=== PATIENT | female | born 1990 | race Caucasian/White ===

== ENCOUNTER 2016-07-29 19:06 | Emergency (ER) | payer BC ==
[~2016-07-29] VITALS: Ht 172.7 cm; Wt 129.3 kg
[~2016-07-29 19:06] MED LIST: AMOXICILLIN500 MG PO; AMOXIL500 MG PO; ATARAX10 MG PO; ATARAX25 MG PO; AUGMENTIN 875 M1 TA1 PO; BACTRIM DS 8001 TA1 PO; BACTROBAN2% TP; BENADRYL25 MG PO; BENADRYL50 MG PO; BIRTH CONTROL1 EAC1; CIPRO500 MG PO; CIPROFLOXACIN500 MG PO; CLARITIN10 MG PO; CLINDAMYCIN150 MG PO; COLACE50 MG PO; FERROUS SULFATE; FLEXERIL10 MG PO; FLEXERIL5 MG PO; HYDROCODONE BIT1 T11 PO; IBU-8800 MG PO; IBU800 M1 PO; KEFLEX500 MG PO; KENALOG 0.1%80 GM T; KETOROLAC10 MG PO; LIDEX 0.05% CRE15 GM T; MACROBID100 M1 PO; MEDROL DOSEPAK4 MG PO; MOTRIN800 MG PO; PEPCID20 MG PO; PRED-PAK 455 MG PO; PREDNICOT20 MG PO; PREDNISONE20 MG PO; PRENATAL1 TA1 PO; ROBITUSSIN AC 110 ML PO; ROBITUSSIN DM120 ML PO; SKELAXIN800 M1 PO; ULTRAM50 MG PO; VITAMIN D1000 IU PO; ZANTAC 150150 MG PO; ZITHROMAX Z PA250 MG PO; ZOFRAN ODT4 MG SL; ZYRTEC10 MG PO
[2016-07-29 19:58] LABS: BILIRUBIN NEGATIVE (NEGATIVE); BLOOD 2+ (NEGATIVE); COLOR YELLOW (YELLOW); GLUCOSE NEGATIVE (NEGATIVE); KETONE NEGATIVE (NEGATIVE); LEUKO ESTERASE 2+ (NEGATIVE); NITRITE NEGATIVE (NEGATIVE); PH 5.5 (5.0-9.0); PROTEIN NEGATIVE (NEGATIVE); UROBILINOGEN 0.2 E.U./dl (0.2-1.0)
[2016-07-29 20:09] LABS: CLARITY SL CLOUDY (CLEAR)
[2016-07-29 20:10] LABS: EPITHELIAL CELLS 25-30; URINE REFLEX COMMENT YES (NO)
[2016-07-29] MEDS ORDERED: MACROBID100 M1 PO (20:14)
[2016-09-19] MEDS ORDERED: AVPAK AZITHROM250 M1 PO (11:50)
[2016-09-19] MEDS ORDERED: ZOFRAN ODT4 MG SL (11:52)
[2016-09-19] MEDS ORDERED: PRILOSEC20 M1 PO (11:52)
== END 2016-07-29 20:19 | disposition home or self-care (01) ==
LOC: ED 19:06
PROVIDERS: Nurse Practitioner Family
DX: N30.01 Acute cystitis with hematuria (principal); F17.200 Nicotine dependence, unspecified, uncomplicated; Z91.030 Bee allergy status; Z88.0 Allergy status to penicillin; Z88.8 Allergy status to other drugs, medicaments and biological substances

== ENCOUNTER 2016-07-31 14:07 | Emergency (ER) | payer BC ==
[~2016-07-31] VITALS: Ht 172.7 cm; Wt 129.3 kg
[2016-07-31 14:47] LABS: BASO % 0.5 % (0.0-1.0); EOS # 0.3 10*3/uL (0.0-0.4); EOS % 3.4 % (1.0-4.0); HEMATOCRIT 38.8 % (37.0-47.0); HEMOGLOBIN 12.6 g/dl (12.0-16.0); LYMPH # 2.2 10*3/uL (1.3-4.4); LYMPH % 26.1 % (27.0-41.0); MEAN CELL VOLUME 87.8 fl (81.0-99.0); MEAN CORPUSCULAR HGB 28.5 pg (27.0-31.0); MEAN CORPUSCULAR HGB CONC 32.5 g/dl (33.0-37.0); MEAN PLATELET VOLUME 11.1 fl (9.6-12.3); MONO # 0.4 10*3/uL (0.1-1.0); NEUT # 5.6 10*3/uL (2.3-7.9); NEUT % 64.8 % (47.0-73.0); PLATELET COUNT AUTOMATED 207 10*3/uL (130-400); RED BLOOD COUNT 4.42 10*6/uL (4.10-5.10); WHITE BLOOD COUNT 8.6 10*3/uL (4.8-10.8)
[2016-07-31 14:58] LABS: BILIRUBIN NEGATIVE (NEGATIVE); BLOOD 3+ (NEGATIVE); CLARITY CLOUDY (CLEAR); COLOR YELLOW (YELLOW); GLUCOSE NEGATIVE (NEGATIVE); KETONE NEGATIVE (NEGATIVE); LEUKO ESTERASE 3+ (NEGATIVE); NITRITE NEGATIVE (NEGATIVE); PROTEIN 1+ (NEGATIVE); SPECIFIC GRAVITY 1.015 (1.005-1.030); UROBILINOGEN 0.2 E.U./dl (0.2-1.0)
[2016-07-31 15:06] LABS: BACTERIA 1+; RBC 16-20 rbc/hpf (0-2); WBC 41-50 wbc/hpf (0-5)
[2016-07-31 15:07] LABS: URINE REFLEX COMMENT YES (NO)
[2016-07-31 15:14] LABS: BUN 11 mg/dl (7-24); CARBON DIOXIDE 30 mmol/L (21-32); CHLORIDE 106 mmol/L (98-107); EST GLOM FILT AFRICAN AMERICAN > 60 ml/min; GLUCOSE 106 mg/dL (65-99); POTASSIUM 4.1 mmol/L (3.5-5.1); SODIUM 143 mmol/L (136-145)
[2016-07-31] MEDS ORDERED: Motrin,Rufen800 MG PO (16:40)
[2016-07-31] MEDS ORDERED: LEVOFLOXACIN500 MG PO (16:40)
[2016-07-31] MEDS ORDERED: PYRIDIUM200 M1 PO (16:40)
[2016-09-19] MEDS ORDERED: AVPAK AZITHROM250 M1 PO (11:50)
[2016-09-19] MEDS ORDERED: PRILOSEC20 M1 PO (11:52)
[2016-09-19] MEDS ORDERED: ZOFRAN ODT4 MG SL (11:52)
== END 2016-07-31 16:46 | disposition home or self-care (01) ==
LOC: ED 14:07
PROVIDERS: Emergency Medicine
DX: N92.0 Excessive and frequent menstruation with regular cycle (principal); N39.0 Urinary tract infection, site not specified; F17.200 Nicotine dependence, unspecified, uncomplicated; Z88.0 Allergy status to penicillin; Z91.030 Bee allergy status; Z88.8 Allergy status to other drugs, medicaments and biological substances

== ENCOUNTER 2016-10-12 14:03 | Emergency (ER) | payer BC ==
[~2016-10-12] VITALS: Ht 172.7 cm; Wt 132.4 kg
[~2016-10-12 14:03] MED LIST changes: +AVPAK AZITHROM250 M1 PO; +LEVOFLOXACIN500 MG PO; +Motrin,Rufen800 MG PO; +PRILOSEC20 M1 PO; +PYRIDIUM200 M1 PO
[2016-10-12] MEDS ORDERED: FLONASE ALLERG9.9 ML NAS (14:27)
[2016-10-12] MEDS ORDERED: CLARITIN-D 12 H1 TAB PO (14:27)
[2016-10-12] MEDS ORDERED: ZITHROMAX250 MG PO (14:27)
== END 2016-10-12 14:31 | disposition home or self-care (01) ==
LOC: ED 14:03
DX: J01.90 Acute sinusitis, unspecified (principal); J45.909 Unspecified asthma, uncomplicated; F17.200 Nicotine dependence, unspecified, uncomplicated; Z79.899 Other long term (current) drug therapy; Z91.030 Bee allergy status; Z88.0 Allergy status to penicillin

== ENCOUNTER 2017-05-07 17:36 | Emergency (ER) | payer BC, MEDICAID ==
[~2017-05-07] VITALS: Ht 167.6 cm; Wt 122.5 kg
[~2017-05-07 17:36] MED LIST changes: +CLARITIN-D 12 H1 TAB PO; +FLONASE ALLERG9.9 ML NAS; +ZITHROMAX250 MG PO
== END 2017-05-07 18:13 | disposition home or self-care (01) ==
LOC: ED 17:36
DX: S06.0X0A Concussion without loss of consciousness, initial encounter (principal); F17.200 Nicotine dependence, unspecified, uncomplicated; Z88.0 Allergy status to penicillin; Z91.030 Bee allergy status; Z91.041 Radiographic dye allergy status; W22.8XXA Striking against or struck by other objects, initial encounter; Y93.89 Activity, other specified; Y92.89 Other specified places as the place of occurrence of the external cause; Y99.8 Other external cause status

== ENCOUNTER → 2017-07-24 | Outpatient (CLI) | payer BC, MEDICAID | END | disposition home or self-care (01) | LOC: RAD 17:09 | DX: M54.5 Low back pain (principal); Z91.81 History of falling ==

== ENCOUNTER 2017-10-22 10:11 | Emergency (ER) | payer BC, OTHER ==
[~2017-10-22] VITALS: Ht 170.1 cm; Wt 134.3 kg
[2017-10-22 10:34] LABS: BASO % 0.3 % (0.0-1.0); EOS # 0.2 10*3/uL (0.0-0.4); HEMATOCRIT 40.8 % (37.0-47.0); HEMOGLOBIN 13.8 g/dl (12.0-16.0); LYMPH # 2.3 10*3/uL (1.3-4.4); LYMPH % 22.1 % (27.0-41.0); MEAN CELL VOLUME 86.3 fl (81.0-99.0); MEAN CORPUSCULAR HGB 29.2 pg (27.0-31.0); MEAN CORPUSCULAR HGB CONC 33.8 g/dl (33.0-37.0); MEAN PLATELET VOLUME 10.8 fl (9.6-12.3); MONO # 0.5 10*3/uL (0.1-1.0); MONO % 4.6 % (3.0-9.0); NEUT # 7.5 10*3/uL (2.3-7.9); NEUT % 70.8 % (47.0-73.0); PLATELET COUNT AUTOMATED 225 10*3/uL (130-400); RED BLOOD COUNT 4.73 10*6/uL (4.10-5.10); RED CELL DISTRI WIDTH 12.1 % (0-14.5); WHITE BLOOD COUNT 10.5 10*3/uL (4.8-10.8)
[2017-10-22 10:50] LABS: ALBUMIN 3.8 gm/dl (3.1-4.5); ALKALINE PHOSPHATASE 92 U/L (45-117); BUN 14 mg/dl (7-24); CHLORIDE 106 mmol/L (98-107); CREATININE 0.83 mg/dL (0.55-1.02); POTASSIUM 3.8 mmol/L (3.5-5.1); SGOT/AST 11 IU/L (3-35); SGPT/ALT 18 U/L (12-78); SODIUM 138 mmol/L (136-145); TOTAL PROTEIN 8.3 gm/dL (6.4-8.2)
== END 2017-10-22 12:38 | disposition home or self-care (01) ==
LOC: ED 10:11
PROVIDERS: Nurse Practitioner Family
DX: R19.7 Diarrhea, unspecified (principal); R03.0 Elevated blood-pressure reading, without diagnosis of hypertension; F17.200 Nicotine dependence, unspecified, uncomplicated; Z79.899 Other long term (current) drug therapy; Z91.030 Bee allergy status; Z88.0 Allergy status to penicillin

== ENCOUNTER 2018-07-31 14:29 | Emergency (ER) | payer BC, OTHER ==
[~2018-07-31] VITALS: Ht 167.6 cm; Wt 126.1 kg
[~2018-07-31 14:29] MED LIST changes: +NAPROSYN500 MG PO; +ROBAXIN500 M1 PO
[2018-07-31] MEDS ORDERED: ESCITALOPRAM OX10 MG PO (14:38)
[2018-07-31] MEDS ORDERED: HYDROXYZINE PAM25 M1 PO (14:38)
[2018-07-31 15:11] LABS: BASO % 0.5 % (0.0-1.0); EOS # 0.3 10*3/uL (0.0-0.4); HEMOGLOBIN 13.5 g/dl (12.0-16.0); LYMPH # 1.8 10*3/uL (1.3-4.4); LYMPH % 24.1 % (27.0-41.0); MEAN CELL VOLUME 90.7 fl (81.0-99.0); MEAN CORPUSCULAR HGB 30.6 pg (27.0-31.0); MEAN CORPUSCULAR HGB CONC 33.8 g/dl (33.0-37.0); MEAN PLATELET VOLUME 11.6 fl (9.6-12.3); MONO # 0.4 10*3/uL (0.1-1.0); MONO % 5.2 % (3.0-9.0); NEUT % 65.9 % (47.0-73.0); PLATELET COUNT AUTOMATED 170 10*3/uL (130-400); RED BLOOD COUNT 4.41 10*6/uL (4.10-5.10); RED CELL DISTRI WIDTH 12.5 % (0-14.5); WHITE BLOOD COUNT 7.5 10*3/uL (4.8-10.8)
[2018-07-31 15:29] LABS: ALBUMIN 3.7 gm/dl (3.1-4.5); ALKALINE PHOSPHATASE 71 U/L (45-117); BUN 10 mg/dl (7-24); CHLORIDE 108 mmol/L (98-107); CREATININE 1.07 mg/dL (0.55-1.02); LIPASE 114 U/L (73-393); POTASSIUM 4.5 mmol/L (3.5-5.1); SGOT/AST 9 IU/L (3-35); SGPT/ALT 14 U/L (12-78); SODIUM 141 mmol/L (136-145); TOTAL PROTEIN 7.4 gm/dL (6.4-8.2)
[2018-07-31] MEDS ORDERED: ZANTAC 150150 MG PO (17:10)
== END 2018-07-31 17:17 | disposition home or self-care (01) ==
LOC: ED 14:29
PROVIDERS: Physician Assistant
DX: R10.13 Epigastric pain (principal); K21.9 Gastro-esophageal reflux disease without esophagitis; F17.200 Nicotine dependence, unspecified, uncomplicated; Z91.030 Bee allergy status; Z88.0 Allergy status to penicillin

== ENCOUNTER 2018-08-25 11:33 | Emergency (ER) | payer BC, OTHER ==
[~2018-08-25] VITALS: Ht 167.6 cm; Wt 124.7 kg
[~2018-08-25 11:33] MED LIST changes: +ESCITALOPRAM OX10 MG PO; +HYDROXYZINE PAM25 M1 PO
[2018-08-25 12:01] LABS: BILIRUBIN NEGATIVE (NEGATIVE); BLOOD NEGATIVE (NEGATIVE); CLARITY SL CLOUDY (CLEAR); COLOR YELLOW (YELLOW); GLUCOSE NEGATIVE (NEGATIVE); KETONE NEGATIVE (NEGATIVE); LEUKO ESTERASE 2+ (NEGATIVE); NITRITE NEGATIVE (NEGATIVE); PH 6.5 (5.0-9.0); UROBILINOGEN 0.2 E.U./dl (0.2-1.0)
[2018-08-25 12:56] LABS: WBC 16-20 wbc/hpf (0-5)
[2018-08-25 12:57] LABS: BACTERIA 1+
[2018-08-25] MEDS ORDERED: SEPTDS PO (15:04)
[2018-08-25] MEDS ORDERED: PREDNISONE20 M1 PO (15:04)
[2018-08-25] MEDS ORDERED: TESSALON PERLE100 M1 PO (15:04)
[2018-08-25] MEDS ORDERED: PROVENTIL HFA6.7 GM INH (15:04)
== END 2018-08-25 15:05 | disposition home or self-care (01) ==
LOC: ED 11:33
PROVIDERS: Emergency Medicine
DX: N39.0 Urinary tract infection, site not specified (principal); J40 Bronchitis, not specified as acute or chronic; R19.7 Diarrhea, unspecified; R11.10 Vomiting, unspecified; F17.200 Nicotine dependence, unspecified, uncomplicated; Z88.0 Allergy status to penicillin

== ENCOUNTER → 2019-04-24 | Outpatient (CLI) | payer OTHER ==
[~2019-04-24] MED LIST changes: +PREDNISONE20 M1 PO; +PROVENTIL HFA6.7 GM INH; +SEPTDS PO; +TESSALON PERLE100 M1 PO
== END | disposition home or self-care (01) ==
LOC: RAD 15:39
DX: M54.5 Low back pain (principal); Z91.81 History of falling

== ENCOUNTER → 2019-05-28 | Outpatient (CLI) | payer OTHER | END | disposition home or self-care (01) | LOC: MRI 05-21 09:00 | DX: M51.26 Other intervertebral disc displacement, lumbar region (principal); M47.816 Spondylosis without myelopathy or radiculopathy, lumbar region; R20.2 Paresthesia of skin ==

== ENCOUNTER 2019-11-01 12:56 | Emergency (ER) | payer OTHER ==
[~2019-11-01] VITALS: Ht 170.1 cm; Wt 132.9 kg
[2019-11-01] MEDS ORDERED: IBUPROFEN600 MG PO (13:45)
[2019-11-01] MEDS ORDERED: DOXYCYCLINE100 M3 PO (13:45)
[2019-11-01] MEDS ORDERED: NORCO 5-325 TA1 EACH PO (13:48)
== END 2019-11-01 14:08 | disposition home or self-care (01) ==
LOC: ED 12:56
DX: N61.1 Abscess of the breast and nipple (principal); Z88.0 Allergy status to penicillin; Z88.1 Allergy status to other antibiotic agents; Z91.041 Radiographic dye allergy status; Z88.8 Allergy status to other drugs, medicaments and biological substances; Z79.899 Other long term (current) drug therapy

== ENCOUNTER 2020-01-26 22:38 | Emergency (ER) | payer OTHER ==
[~2020-01-26] VITALS: Ht 170.1 cm; Wt 133.8 kg
[~2020-01-26 22:38] MED LIST changes: +DOXYCYCLINE100 M3 PO; +IBUPROFEN600 MG PO; +NORCO 5-325 TA1 EACH PO
[2020-01-27] MEDS ORDERED: CYCLOBENZAPRINE10 MG PO (01:08)
== END 2020-01-27 01:45 | disposition home or self-care (01) ==
LOC: ED 22:38
DX: S29.012A Strain of muscle and tendon of back wall of thorax, initial encounter (principal); S40.012A Contusion of left shoulder, initial encounter; J45.909 Unspecified asthma, uncomplicated; Z88.1 Allergy status to other antibiotic agents; Z88.0 Allergy status to penicillin; Z79.899 Other long term (current) drug therapy; X58.XXXA Exposure to other specified factors, initial encounter; Y93.89 Activity, other specified; Y92.89 Other specified places as the place of occurrence of the external cause; Y99.8 Other external cause status

== ENCOUNTER → 2020-06-29 | Outpatient (CLI) | payer OTHER ==
[~2020-06-29] MED LIST changes: +CYCLOBENZAPRINE10 MG PO
== END | disposition home or self-care (01) ==
LOC: COVID19 09:34
PROVIDERS: ATTEND Family Medicine
DX: Z20.828 Contact with and (suspected) exposure to other viral communicable diseases (principal)

== ENCOUNTER → 2020-07-21 | Outpatient (CLI) | payer OTHER | END | disposition home or self-care (01) | LOC: COVID19 09:04 | PROVIDERS: ATTEND Family Medicine | DX: U07.1 COVID-19 (principal) ==

== ENCOUNTER 2021-02-05 16:33 | Emergency (ER) | payer OTHER ==
[~2021-02-05] VITALS: Wt 127.0 kg
[2021-02-05] MEDS ORDERED: SEPTDS PO (17:56)
== END 2021-02-05 17:58 | disposition home or self-care (01) ==
LOC: ED 16:33
DX: S61.211A Laceration without foreign body of left index finger without damage to nail, initial encounter (principal); F17.200 Nicotine dependence, unspecified, uncomplicated; Z88.1 Allergy status to other antibiotic agents; Z91.041 Radiographic dye allergy status; Z88.0 Allergy status to penicillin; Z79.2 Long term (current) use of antibiotics; Z79.899 Other long term (current) drug therapy; Z90.89 Acquired absence of other organs; W26.0XXA Contact with knife, initial encounter; Y93.89 Activity, other specified; Y92.89 Other specified places as the place of occurrence of the external cause; Y99.8 Other external cause status

== ENCOUNTER → 2021-06-16 | Outpatient (CLI) | payer OTHER | END | disposition home or self-care (01) | LOC: US 10:49 | PROVIDERS: ATTEND Family Medicine | DX: N64.52 Nipple discharge (principal); N64.59 Other signs and symptoms in breast ==

== ENCOUNTER 2021-12-26 12:50 | Emergency (ER) | payer OTHER ==
[~2021-12-26] VITALS: Ht 167.6 cm; Wt 117.9 kg
[2021-12-26] MEDS ORDERED: LIDEX 0.05% CRE15 GM T (13:37)
== END 2021-12-26 14:07 | disposition home or self-care (01) ==
LOC: ED 12:50
DX: L23.7 Allergic contact dermatitis due to plants, except food (principal)

== ENCOUNTER → 2023-07-06 | Outpatient (CLI) | payer OTHER | END | disposition home or self-care (01) | LOC: US 13:50 | PROVIDERS: ATTEND Nurse Practitioner Women's Health | DX: D25.1 Intramural leiomyoma of uterus (principal); N83.202 Unspecified ovarian cyst, left side; N83.201 Unspecified ovarian cyst, right side; R93.89 Abnormal findings on diagnostic imaging of other specified body structures ==

== ENCOUNTER 2023-07-20 16:59 | Emergency (ER) | payer SELFPAY ==
[~2023-07-20] VITALS: Ht 170.1 cm; Wt 112.9 kg
[2023-07-20 18:24] LABS: BASO % 0.5 % (0.0-1.0); EOS # 0.1 10*3/uL (0.0-0.4); EOS % 2.3 % (1.0-4.0); HEMATOCRIT 39.2 % (37.0-47.0); LYMPH # 1.2 10*3/uL (1.3-4.4); MEAN CELL VOLUME 90.5 fl (81.0-99.0); MEAN CORPUSCULAR HGB 29.8 pg (27.0-31.0); MEAN CORPUSCULAR HGB CONC 32.9 g/dl (33.0-37.0); MEAN PLATELET VOLUME 10.8 fl (9.6-12.3); MONO # 0.4 10*3/uL (0.1-1.0); MONO % 6.8 % (3.0-9.0); NEUT % 69.2 % (47.0-73.0); PLATELET COUNT AUTOMATED 150 10*3/uL (130-400); RED BLOOD COUNT 4.33 10*6/uL (4.10-5.10); RED CELL DISTRI WIDTH 12.6 % (0-14.5); WHITE BLOOD COUNT 5.7 10*3/uL (4.8-10.8)
[2023-07-20 18:57] LABS: ALKALINE PHOSPHATASE 73 U/L (46-116); BUN 11 mg/dl (9-23); CHLORIDE 107 mmol/L (98-107); POTASSIUM 3.8 mmol/L (3.4-5.1); SGPT/ALT 11 U/L (5-49); TOTAL PROTEIN 7.5 gm/dL (6.0-8.0)
[2023-07-20] MEDS ORDERED: CEPHALEXIN500 M1 PO (19:04)
== END 2023-07-20 19:22 | disposition home or self-care (01) ==
LOC: ED 16:59
PROVIDERS: Physician Assistant Medical
DX: T25.121A Burn of first degree of right foot, initial encounter (principal); T31.0 Burns involving less than 10% of body surface; J45.909 Unspecified asthma, uncomplicated; Z88.0 Allergy status to penicillin; Z88.1 Allergy status to other antibiotic agents; Z91.041 Radiographic dye allergy status; Z98.890 Other specified postprocedural states; Z90.89 Acquired absence of other organs; X08.8XXA Exposure to other specified smoke, fire and flames, initial encounter; Y93.89 Activity, other specified; Y92.89 Other specified places as the place of occurrence of the external cause; Y99.8 Other external cause status